=== PATIENT | male | born 1950 | race Hispanic/Latino ===

== ENCOUNTER → 2019-01-15 | Outpatient (CLI) | payer BC, MEDICARE ==
[~2019-01-15] MED LIST: ATORVASTATIN CA20 MG PO; BELLADONNA/OPIUM 30 MG SUPP RC ONE; CLINDAMYCIN 600MG / 50ML 0 ML IV ONE; DEXTROSE 5% 250ML 0 ML IV ONE; GENTAMICIN 120MG/NS 100ML 0 ML ONE; GLUCOVANCE 5-51 EACH PO; GLYBURIDE-METF1 EAC1 PO; METOPROLOL TART25 MG PO; NEURONTIN300 MG PO; SIMVASTATIN10 MG PO; VASOTEC10 MG PO; XARELTO20 MG PO
[2019-01-15 10:22] LABS: BASOPHILS % 0.3 % (0.0-1.0); EOSINOPHILS # (AUTO) 0.3 (0.0-0.4); EOSINOPHILS % 2.8 % (0.0-6.0); HEMATOCRIT 44.4 % (38.2-49.6); HEMOGLOBIN 14.6 g/dL (14.0-18.0); LYMPHOCYTES # (AUTO) 2.4 (1.0-3.2); LYMPHOCYTES % 22.9 % (18.0-39.1); MEAN CORPUSCULAR HEMOGLOBIN 31.5 pg (28-32); MEAN CORPUSCULAR HGB CONC 32.9 g/dL (31-35); MEAN CORPUSCULAR VOLUME 95.9 fL (81-99); MONOCYTES # (AUTO) 0.9 (0.2-0.8); MONOCYTES % 8.9 % (4.4-11.3); NEUTROPHILS # (AUTO) 6.7 (2.1-6.9); NEUTROPHILS % 64.7 % (38.7-80.0); PLATELET COUNT 356 x10e3/uL (140-360); RED BLOOD COUNT 4.63 x10e6/uL (4.3-5.7)
[2019-01-15 10:40] LABS: ANION GAP 10.9 mmol/L (8-16); BLOOD UREA NITROGEN 7 mg/dL (7-26); BUN/CREATININE RATIO 9 (6-25); CALCIUM 8.7 mg/dL (8.4-10.2); CARBON DIOXIDE 27 mmol/L (22-29); CHLORIDE 101 mmol/L (98-107); CREATININE, SERUM 0.76 mg/dL (0.72-1.25); EST GLOMERULAR FILTRATION RATE > 60 ML/MIN (60-); GLUCOSE 131 mg/dL (74-118); POTASSIUM 3.9 mmol/L (3.5-5.1); SODIUM 135 mmol/L (136-145)
--- NOTE | 2019-01-15 10:42 | Diagnostic Imaging Report ---
EXAMINATION: CHEST 2 VIEWS INDICATION: Pre-op. COMPARISON: None FINDINGS: TUBES and LINES: None. LUNGS: There is opacity in the left lower lung silhouetting the left border. On the lateral view, an ovoid opacity projects over the mid thoracic vertebral bodies. No evidence of pulmonary edema. PLEURA: No pleural effusion or pneumothorax. HEART AND MEDIASTINUM: The cardiomediastinal silhouette is unremarkable. BONES AND SOFT TISSUES: No acute osseous lesion. Soft tissues are unremarkable. UPPER ABDOMEN: No free air under the diaphragm. IMPRESSION: Indeterminate left middle/posterior mediastinal opacity. Chest CT is recommended for further evaluation. Signed by: Dr. Lizett Gupta MD on 01/15/2019 10:39 AM
--- OUTSIDE RECORDS SUMMARY | 2019-01-17 07:05 | XMS REPORT ---
Author Author [facility] Address Unknown Phone Unavailable Care Team Providers Care Head Paper Tester Name Role Phone AVNI ORTA Unavailable Unavailable Problems This patient has no known problems. Allergies, Adverse Reactions, Alerts This patient has no known allergies or adverse reactions. Medications This patient has no known medications. Results Test Description Test Time Test Comments Text Results Atomic Results Result Comments CHEST 2 VIEWS 2019-01-15 10:33:00 [place] [address] Patient Name: MERT CINTRON MR #: [id number] : 1950 Age/Sex: 69/M Req #: [id number] Adm Physician: Ordered by: AVNI ORTA MD Report #: [id number] Location: OR Room/Bed: Procedure: [id number] DX/CHEST 2 VIEWS Exam Date: Exam Time: REPORT STATUS: Signed EXAMINATION: CHEST 2 VIEWS INDICATION: Pre-op. COMPARISON: None FINDINGS: TUBES and LINES: None. LUNGS: There is opacity in the left lower lung silhouetting the left border. On the lateral view, an ovoid opacity projects over the mid thoracic vertebral bodies. No evidence of pulmonary edema. PLEURA: No pleural effusion or pneumothorax. HEART AND MEDIASTINUM: The cardiomediastinal silhouette is unremarkable. BON ES AND SOFT TISSUES: No acute osseous lesion. Soft tissues are unremarkable. UPPER ABDOMEN: No free air under the diaphragm. IMPRESSION: Indeterminate left middle/posterior mediastinal opacity. Chest CT is recommended for further evaluation. Signed by: Dr. Varun Razo MD on 01/15/2019 10:39 AM Dictated By: VARUN RAZO MD [id number] Transcribed By: RENATO on 01/15/19 1039 COPY TO: AVNI ORTA MD
== END | disposition home or self-care (01) ==
LOC: RAD 05:00 → OR 01-17 07:01 → EDSTATUS 01-17 09:00
PROVIDERS: ATTEND Urology
DX: R97.20 Elevated prostate specific antigen [PSA] (principal); Z53.09 Procedure and treatment not carried out because of other contraindication
CPT/HCPCS: 36415; 71046; 80048; 82948; 85025; 93005; J1580; J7070

== ENCOUNTER → 2019-02-21 | Outpatient (CLI) | payer BC ==
[~2019-02-21] MED LIST changes: -BELLADONNA/OPIUM 30 MG SUPP RC ONE; -CLINDAMYCIN 600MG / 50ML 0 ML IV ONE; -DEXTROSE 5% 250ML 0 ML IV ONE; -GENTAMICIN 120MG/NS 100ML 0 ML ONE
--- NOTE | 2019-02-21 08:30 | Diagnostic Imaging Report ---
EXAMINATION: CT scan of the chest without contrast. TECHNIQUE: Spiral CT images of the chest were performed from the lung apices to the level of the adrenal glands. No intravenous contrast was administered per referring physician request. Coronal and sagittal reformatted images were obtained. COMPARISON: Chest radiograph 01/15/2019 CLINICAL HISTORY:Abnormal chest x-ray DISCUSSION: ABSENCE OF INTRAVENOUS CONTRAST DECREASES SENSITIVITY FOR DETECTION OF FOCAL LESIONS AND VASCULAR PATHOLOGY. LINES/TUBES: None. LUNGS AND AIRWAYS: Linear airspace opacity in the right middle lobe compatible with focal fibrotic change or subsegmental atelectasis. Similar findings in the inferior lingula. Minimal groundglass and reticular opacity in the dependent portions of the lower lobes compatible with subsegmental atelectasis. No airspace consolidation, gross mass lesion, or bronchiectasis. PLEURA: Prominent extrapleural fat. No pleural effusion or pneumothorax. HEART AND MEDIASTINUM: Visualized portions of the thyroid gland appear normal. There is no ectasia or aneurysmal dilatation of the thoracic aorta. Atherosclerotic calcification of the thoracic aorta, great vessel origins, and right coronary artery. No pericardial effusion. No mediastinal mass. LYMPH NODES: No axillary, hilar, or mediastinal lymphadenopathy. Subcentimeter centrally calcified mediastinal lymph nodes compatible with prior granulomatous disease. Subcentimeter calcified left hilar lymph nodes. ABDOMEN: Visualized portions of the liver, spleen, pancreas, and adrenal glands are unremarkable. Partially visualized 5.7 cm low-attenuation left renal lesion, average internal attenuation 5-10 Hounsfield units, likely a simple cyst. BONES AND SOFT TISSUES: No osseous destructive lesion. Bulky anterior and lateral osteophytes along the course of the thoracic spine, presumably accounting for the ovoid opacity projecting over the posterior mediastinum on the comparison chest radiograph. No focal soft tissue abnormalities. IMPRESSION: No pulmonary parenchymal or mediastinal mass. Ovoid opacity projecting over the left posterior mediastinum on the comparison chest radiograph likely represents summation of large degenerative thoracic spine osteophytes and the descending thoracic aorta. Atherosclerotic vascular disease. Evidence of prior granulomatous infection. Probable simple cyst left kidney, partially visualized. This may be confirmed by renal ultrasound. Signed by: Dr. Lev Matute M.D. on 02/21/2019 8:27 AM
== END ==
LOC: CT 07:15
PROVIDERS: ATTEND Family Medicine
DX: R91.8 Other nonspecific abnormal finding of lung field (principal)
CPT/HCPCS: 71250

== ENCOUNTER 2024-08-30 12:22 | Emergency (ER) | payer BC, MEDICARE ==
[~2024-08-30] VITALS: Ht 165.1 cm; Wt 93.0 kg
[2024-08-30 13:29] LABS: BASOPHILS % 0.3 % (0.0-1.0); EOSINOPHILS # (AUTO) 0.1 (0.0-0.4); EOSINOPHILS % 1.7 % (0.0-6.0); HEMATOCRIT 43.3 % (38.2-49.6); HEMOGLOBIN 14.1 g/dL (14.0-18.0); LYMPHOCYTES # (AUTO) 2.5 (1.0-3.2); LYMPHOCYTES % 33.4 % (18.0-39.1); MEAN CORPUSCULAR HEMOGLOBIN 32.1 pg (28-32); MEAN CORPUSCULAR HGB CONC 32.6 g/dL (31-35); MEAN CORPUSCULAR VOLUME 98.6 fL (81-99); MONOCYTES # (AUTO) 0.5 (0.2-0.8); MONOCYTES % 6.4 % (4.4-11.3); NEUTROPHILS # (AUTO) 4.4 (2.1-6.9); NEUTROPHILS % 57.9 % (38.7-80.0); PLATELET COUNT 297 x10e3/uL (140-360); RED BLOOD COUNT 4.39 x10e6/uL (4.3-5.7); RED CELL DISTRIBUTION WIDTH 12.9 % (11.7-14.4); WHITE BLOOD COUNT 7.61 x10e3/uL (4.8-10.8)
[2024-08-30 13:44] LABS: INR 1.38; PROTHROMBIN TIME 17.7 seconds (11.9-14.5)
[2024-08-30 13:45] LABS: PARTIAL THROMBOPLASTIN TIME 35.2 seconds (23.8-35.5)
[2024-08-30 13:56] LABS: ALBUMIN/GLOBULIN RATIO 1.2 (0.8-2.0); ANION GAP 14.8 mmol/L (8-16); CALCIUM 9.7 mg/dL (8.4-10.2); CREATININE, SERUM 0.84 mg/dL (0.72-1.25); MAGNESIUM 1.9 MG/DL (1.3-2.1); POTASSIUM 4.8 mmol/L (3.5-5.1); TOTAL PROTEIN 7.3 g/dL (6.5-8.1)
[2024-08-30 14:02] LABS: TROPONIN I 0.008 ng/mL (0-0.300)
[2024-08-30] MEDS: MECLIZINE HCL 12.5 MG TAB PO ONE (14:31)
[2024-08-30] MEDS: SODIUM CHLORIDE 0.9% 1000ML 1,000 ML IV STA (14:31)
[2024-08-30 14:34] VITALS: PULSE 72; RESP 14; TEMP 98
[2024-08-30 15:35] VITALS: BP 123/82; PULSE 78; RESP 18; TEMP 98.1; O2SAT 99
== END 2024-08-30 15:40 | disposition home or self-care (01) ==
LOC: ER 12:40
DX: R42 Dizziness and giddiness (principal); I48.20 Chronic atrial fibrillation, unspecified; R51.9 Headache, unspecified; R94.31 Abnormal electrocardiogram [ECG] [EKG]
CPT/HCPCS: 36415; 70450; 71045; 72125; 80053; 82550; 83735; 84484; 85025; 85610; 85730; 93005; 99284; J7030; J8597

== ENCOUNTER 2025-06-17 11:07 | Inpatient (IN) | payer MEDICARE ==
[~2025-06-17] VITALS: Ht 165.1 cm; Wt 93.0 kg
[2025-06-17 12:40] LABS: BASOPHILS % 0.1 % (0.0-1.0); EOSINOPHILS % 0.1 % (0.0-6.0); LYMPHOCYTES % 7.5 % (18.0-39.1); MONOCYTES % 6.0 % (4.4-11.3); NEUTROPHILS % 85.8 % (38.7-80.0); RED CELL DISTRIBUTION WIDTH 13.2 % (11.7-14.4)
[2025-06-17 12:48] LABS: EPITHELIAL CELLS,URINE FEW /LPF; LEUKOCYTE ESTERASE ,URINE NEGATIVE (NEGATIVE); PROTEIN,URINE DIPSTICK NEGATIVE (NEGATIVE); URINE UROBILINOGEN 0.2 mg/dL (0.2 - 1); WBC,URINE (MAN) 0-5 /HPF (0-5)
[2025-06-17 13:09] LABS: EST GLOMERULAR FILTRATION RATE 58.0 ML/MIN (>=60)
[2025-06-17] MEDS ORDERED: IOPAMIDOL 370 MG/ML 100 ML INFUS..BTL INJ ONE (14:29)
[2025-06-17 15:12] LABS: INR 2.8
[2025-06-17] MEDS: SODIUM CHLORIDE 0.9% 1000ML 1,000 ML IV ONE (15:31)
[2025-06-17] MEDS ORDERED: SODIUM CHLORIDE FLUSH 10 ML SYR INJ PRN (16:15)
[2025-06-17 19:03] VITALS: PULSE 74; RESP 17; TEMP 97.8
[2025-06-17 21:11] VITALS: BP 108/60; PULSE 81; RESP 20; TEMP 98.1; O2SAT 97
[2025-06-17] MEDS ORDERED: DIGOXIN125 MCG PO (21:36)
[2025-06-17] MEDS ORDERED: METFORMIN HCL500 MG PO (21:37)
[2025-06-17] MEDS ORDERED: FLOMAX0.4 MG PO (21:39)
[2025-06-17] MEDS: Morphine 2mg Syringe 2 MG/ML SYR IV PRN (22:44)
[2025-06-17 22:47] VITALS: BP 108/60; PULSE 81; RESP 20; TEMP 98.1; O2SAT 97
[2025-06-18 05:09] VITALS: BP 118/59; PULSE 66; RESP 20; TEMP 98.2; O2SAT 93
[2025-06-18 06:18] LABS: BASOPHILS % 0.2 % (0.0-1.0); EOSINOPHILS % 0.8 % (0.0-6.0); LYMPHOCYTES % 13.1 % (18.0-39.1); MONOCYTES % 7.8 % (4.4-11.3); NEUTROPHILS % 77.5 % (38.7-80.0); RED CELL DISTRIBUTION WIDTH 13.5 % (11.7-14.4)
[2025-06-18 06:47] LABS: EST GLOMERULAR FILTRATION RATE 54.0 ML/MIN (>=60)
[2025-06-18 08:00] VITALS: BP 118/40; PULSE 87; RESP 17; TEMP 98.7; O2SAT 99
[2025-06-18 08:30] VITALS: BP 118/40; PULSE 87; RESP 17; TEMP 98.7; O2SAT 99
[2025-06-18] MEDS ORDERED: HEPARIN SOD/DEXTROSE 5% 25000 UNIT/250 ML BAG IV SCH (09:00)
[2025-06-18] MEDS ORDERED: MELATONIN 3 MG TAB PO PRN (09:15)
[2025-06-18] MEDS ORDERED: DEXTROSE 50% SYRINGE 50 ML IV PRN (09:15)
[2025-06-18] MEDS ORDERED: METOPROLOL TARTRATE INJ 1 MG/ML VIAL IV PRN (09:15)
[2025-06-18 09:51] LABS: CHOL/HDL RATIO 1.9 (3.9-4.7); LDL CHOLESTEROL 28.0 MG/DL (60-130)
[2025-06-18] MEDS: PANTOPRAZOLE SOD 40 MG TABEC PO SCH (10:16)
[2025-06-18] MEDS: TAMSULOSIN HCL 0.4 MG CAP PO SCH (10:16)
[2025-06-18] MEDS: SODIUM CHLORIDE 0.9% 1000ML 1,000 ML IV SCH (10:16)
[2025-06-18 12:00] VITALS: BP 120/56; PULSE 89; RESP 17; TEMP 98.6; O2SAT 99
[2025-06-18] MEDS: INSULIN REGULAR, HUMAN 100 UNIT/1 ML SQ SCH (12:24)
[2025-06-18 16:00] VITALS: BP 123/61; PULSE 92; RESP 17; TEMP 98.4; O2SAT 98
[2025-06-18] MEDS: METOPROLOL TARTRATE 50 MG TAB PO SCH (16:21)
[2025-06-18 21:05] VITALS: BP 115/68; PULSE 83; RESP 18; TEMP 97.9; O2SAT 97
[2025-06-19] VITALS (11 sets, daily range): BP systolic 105–146; BP diastolic 55–85; PULSE 80–98; RESP 13–20; TEMP 96.8–98.6; O2SAT 93–99
[2025-06-19 08:06] LABS: EST GLOMERULAR FILTRATION RATE 67.0 ML/MIN (>=60)
[2025-06-19 08:45] LABS: BASOPHILS % 0.1 % (0.0-1.0); EOSINOPHILS % 0.5 % (0.0-6.0); LYMPHOCYTES % 10.0 % (18.0-39.1); MONOCYTES % 6.7 % (4.4-11.3); NEUTROPHILS % 82.2 % (38.7-80.0); RED CELL DISTRIBUTION WIDTH 14.0 % (11.7-14.4)
[2025-06-19] MEDS ORDERED: RIVAROXABAN 20 MG TABLET PO SCH (09:00)
[2025-06-20] VITALS (11 sets, daily range): BP systolic 113–146; BP diastolic 58–81; PULSE 77–103; RESP 13–22; TEMP 97.8–98.3; O2SAT 95–100
[2025-06-20] MEDS ORDERED: DEXTROSE 50% SYRINGE 50 ML IV PRN (09:30)
[2025-06-20] MEDS: INSULIN LISPRO 100 UNIT/1 ML 3ML VIAL SQ SCH (12:11)
[2025-06-20] MEDS: TAMSULOSIN HCL 0.4 MG CAP PO SCH (17:08)
[2025-06-20 20:14] LABS: BASOPHILS % 0.3 % (0.0-1.0); EOSINOPHILS % 2.4 % (0.0-6.0); LYMPHOCYTES % 17.4 % (18.0-39.1); MONOCYTES % 8.1 % (4.4-11.3); NEUTROPHILS % 70.7 % (38.7-80.0); RED CELL DISTRIBUTION WIDTH 14.3 % (11.7-14.4)
[2025-06-20] MEDS: ALBUTEROL/IPRATROPIUM 3 ML NEB NEB PRN (21:34)
[2025-06-20] MEDS: INSULIN GLARGINE 100 UNITS/ML VIAL SQ SCH (22:02)
[2025-06-21] VITALS (10 sets, daily range): BP systolic 120–152; BP diastolic 59–82; PULSE 82–98; RESP 18–20; TEMP 97–98.6; O2SAT 95–100
[2025-06-21 05:15] LABS: BASOPHILS % 0.4 % (0.0-1.0); EOSINOPHILS % 2.7 % (0.0-6.0); LYMPHOCYTES % 23.7 % (18.0-39.1); MONOCYTES % 8.1 % (4.4-11.3); NEUTROPHILS % 64.2 % (38.7-80.0); RED CELL DISTRIBUTION WIDTH 14.1 % (11.7-14.4)
[2025-06-21 05:43] LABS: EST GLOMERULAR FILTRATION RATE 97.0 ML/MIN (>=60)
[2025-06-21] MEDS: ONDANSETRON HCL INJ 2MG/ML 2ML 2 MG/ML VIAL IV PRN (08:51)
[2025-06-22] VITALS (10 sets, daily range): BP systolic 100–138; BP diastolic 64–84; PULSE 80–98; RESP 16–22; TEMP 97.3–98.6; O2SAT 95–100
[2025-06-22] MEDS: LORATADINE 10 MG TAB PO SCH (11:03)
[2025-06-22] MEDS: FUROSEMIDE INJ 10 MG/ML 4 ML VIAL IV ONE (11:03)
[2025-06-22] MEDS: IRON SUCROSE 100 MG in SODIUM CHLORIDE 0.9% 100 ML IV SCH (11:03)
[2025-06-22] MEDS: ACETAMINOPHEN 325 MG TAB PO SCH (11:03)
[2025-06-22] MEDS ORDERED: DIGOXIN 0.25 MG TAB PO SCH (16:00)
[2025-06-22] MEDS: DIGOXIN 0.125 MG TAB ONE (16:03)
[2025-06-23] VITALS (9 sets, daily range): BP systolic 109–147; BP diastolic 60–75; PULSE 70–132; RESP 17–21; TEMP 97.8–98.5; O2SAT 95–100
[2025-06-23 05:41] LABS: BASOPHILS % 0.3 % (0.0-1.0); EOSINOPHILS % 3.5 % (0.0-6.0); LYMPHOCYTES % 24.5 % (18.0-39.1); MONOCYTES % 10.7 % (4.4-11.3); NEUTROPHILS % 58.8 % (38.7-80.0); RED CELL DISTRIBUTION WIDTH 14.0 % (11.7-14.4)
[2025-06-23 06:31] LABS: EST GLOMERULAR FILTRATION RATE 92.0 ML/MIN (>=60)
[2025-06-23] MEDS: DIGOXIN 0.125 MG TAB PO SCH (09:06)
[2025-06-24] VITALS (8 sets, daily range): BP systolic 111–133; BP diastolic 58–72; PULSE 70–94; RESP 16–20; TEMP 97.3–98.5; O2SAT 96–99
[2025-06-24 05:32] LABS: BASOPHILS % 0.4 % (0.0-1.0); EOSINOPHILS % 3.6 % (0.0-6.0); LYMPHOCYTES % 23.5 % (18.0-39.1); MONOCYTES % 8.8 % (4.4-11.3); NEUTROPHILS % 61.4 % (38.7-80.0); RED CELL DISTRIBUTION WIDTH 14.1 % (11.7-14.4)
[2025-06-24] MEDS: METOPROLOL TARTRATE 50 MG TAB PO SCH (08:36)
[2025-06-24] MEDS: AMIODARONE HCL 200 MG TAB PO SCH ×2 (09:24→17:18)
[2025-06-25] VITALS: BP 110/67; PULSE 63; RESP 18; TEMP 98.1; O2SAT 95
[2025-06-25 07:53] VITALS: PULSE 92; RESP 18; O2SAT 98
[2025-06-25 08:10] VITALS: BP 130/71; PULSE 101; RESP 17; TEMP 98.3; O2SAT 96
[2025-06-25 11:27] VITALS: BP 127/77; PULSE 65; RESP 19; TEMP 98.1; O2SAT 97
[2025-06-25 13:32] VITALS: PULSE 89; RESP 18; O2SAT 97
== END 2025-06-25 13:45 | disposition home or self-care (01) | DRG 725 ==
LOC: ER 12:16 → ERHOLD 16:01 → MED/SURG 21:24 → OBSVTOIN 06-18 09:20
PROVIDERS: ADMIT Internal Medicine; ATTEND Internal Medicine
PROC: 0T9B70Z Drainage of Bladder with Drainage Device, Via Natural or Artificial Opening (ICD-10-PCS; principal; 2025-06-18)
DX: N40.1 Benign prostatic hyperplasia with lower urinary tract symptoms (principal); K68.9 Other disorders of retroperitoneum; N13.8 Other obstructive and reflux uropathy; E87.1 Hypo-osmolality and hyponatremia; E87.20 Acidosis, unspecified; N17.9 Acute kidney failure, unspecified; I48.92 Unspecified atrial flutter; N39.0 Urinary tract infection, site not specified; E11.65 Type 2 diabetes mellitus with hyperglycemia; R31.0 Gross hematuria; I10 Essential (primary) hypertension; E86.0 Dehydration; E78.5 Hyperlipidemia, unspecified; K76.0 Fatty (change of) liver, not elsewhere classified; N28.1 Cyst of kidney, acquired; K52.9 Noninfective gastroenteritis and colitis, unspecified; R33.8 Other retention of urine; I48.0 Paroxysmal atrial fibrillation; E66.9 Obesity, unspecified; Z68.34 Body mass index [BMI] 34.0-34.9, adult; Z79.01 Long term (current) use of anticoagulants; Z79.84 Long term (current) use of oral hypoglycemic drugs
CPT/HCPCS: 36415; 51700; 71046; 74177; 76705; 80048; 80053; 80061; 81001; 82948; 83036; 83690; 85025; 85610; 85730; 94640; 94799; 99252; 99284; G0378; J1756; J1815; J1938; J2270; J2405; J2470; J2543; J7030; J7050; Q9967

== ENCOUNTER 2025-07-09 18:23 | Emergency (ER) | payer MEDICARE ==
[~2025-07-09] VITALS: Ht 165.1 cm; Wt 79.4 kg
[~2025-07-09 18:23] MED LIST changes: +DIGOXIN125 MCG PO; +FLOMAX0.4 MG PO; +METFORMIN HCL500 MG PO
[2025-07-09] MEDS ORDERED: CIPRO500 MG PO (21:15)
[2025-07-09 21:25] VITALS: PULSE 77; RESP 16; TEMP 98.3; O2SAT 97
== END 2025-07-09 21:38 | disposition home or self-care (01) ==
LOC: ER 18:29
DX: R33.9 Retention of urine, unspecified (principal); R30.0 Dysuria; I48.91 Unspecified atrial fibrillation
CPT/HCPCS: 51700; 87086; 87186; 99283